=== PATIENT | female | born 1965 | race Caucasian/White ===

== ENCOUNTER → 2022-01-18 15:47 | Outpatient (BNVA) | payer BC, SELFPAY | PROVIDERS: Family Provider Family Medicine; Visit Provider Internal Medicine | DX: E03.9 Hypothyroidism, unspecified (principal) | CPT/HCPCS: 84439; 84443 ==

== ENCOUNTER → 2022-03-25 10:00 | Outpatient (BNVA) | payer BC, SELFPAY | PROVIDERS: Family Provider Family Medicine; PCP Nurse Practitioner Family; Visit Provider Internal Medicine | DX: E03.9 Hypothyroidism, unspecified (principal) | CPT/HCPCS: 36415; 84439; 84443 ==

== ENCOUNTER → 2022-08-19 11:03 | Outpatient (BNVA) | payer BC, SELFPAY | PROVIDERS: Family Provider Family Medicine; Visit Provider Internal Medicine | DX: E03.9 Hypothyroidism, unspecified (principal); I10 Essential (primary) hypertension | CPT/HCPCS: 36415; 84439; 84443 ==

== ENCOUNTER → 2023-03-25 09:40 | Outpatient (BNVA) | payer BC, SELFPAY | PROVIDERS: Family Provider Family Medicine; Visit Provider Internal Medicine | DX: E03.9 Hypothyroidism, unspecified (principal); I10 Essential (primary) hypertension | CPT/HCPCS: 36415; 84439; 84443 ==

== ENCOUNTER 2023-04-01 08:28 | Outpatient (CLI) | payer BC, SELFPAY ==
[2023-04-01 09:33] LABS: Free T4 Free Thyroxine 1.32 ng/dL (0.82-1.77); Thyroid Stimulating Hormone 7.59 uIU/mL (0.27-4.20)
== END 2023-04-01 08:29 | disposition home or self-care (01) ==
PROVIDERS: Visit Provider Internal Medicine
DX: E03.9 Hypothyroidism, unspecified (principal); I10 Essential (primary) hypertension
CPT/HCPCS: 36415; 84439; 84443

== ENCOUNTER 2023-04-16 22:34 | Emergency (ER) | payer BC, SELFPAY ==
[2023-04-16 22:51] VITALS: BP 135/71; PULSE 92; RESP 16; TEMP 37.4; O2SAT 92; BMI 31.1
[2023-04-16 23:09] LABS: Add Urine Microscopic? NO; Charge for UA Resulting for Rev
[2023-04-16 23:24] LABS: Blood Urine Neg (Negative); Glucose Urine UA Norm (Normal); Protein Urine Neg (Negative); Specific Gravity, Urine 1.005 (1.005-1.030); Urine Appearance Clear (CLEAR); Urine Color Yellow (Yellow); pH Urine 7 (5-7)
[2023-04-16 23:25] LABS: Bilirubin Urine Neg (Negative); Ketones Urine 1+ (Negative); Leukocyte Esterase Urine Negative (Negative); Nitrate Urine Negative (Negative); Urobilinogen Urine Norm (Negative)
[2023-04-16 23:34] VITALS: BP 137/81; PULSE 88; RESP 16; TEMP 36.8; O2SAT 93
--- NOTE | 2023-04-16 23:58 | XRR_ITS ---
PROCEDURE INFORMATION: Exam: XR Chest Exam date and time: 04/17/2023 12:09 AM Clinical indication: Abdominal pain; Localized; Left lower quadrant (llq); Prior surgery; Surgery date: 6+ months; Surgery type: Appy. Partial hysto. Patient HX: Cough with llq pain; Additional info: Llq pain, concern for constipation TECHNIQUE: Imaging protocol: Radiologic exam of the chest. Views: 1 view. COMPARISON: No relevant prior studies available. FINDINGS: Lungs: Unremarkable. No consolidation. Pleural spaces: Unremarkable. No pleural effusion. No pneumothorax. Heart/Mediastinum: Unremarkable. No cardiomegaly. Bones/joints: Unremarkable. PROCEDURE INFORMATION: Exam: XR Abdomen Exam date and time: 04/17/2023 12:09 AM Age: 58 years old Clinical indication: Abdominal pain; Localized; Left lower quadrant (llq); Prior surgery; Surgery date: 6+ months; Surgery type: Appy. Partial hysto. Patient HX: Cough with llq pain; Additional info: Llq pain, concern for constipation TECHNIQUE: Imaging protocol: Radiologic exam of the abdomen. Views: 2 Views. Upright and supine views. COMPARISON: No relevant prior studies available. FINDINGS: Gastrointestinal tract: Normal. No bowel dilation. Intraperitoneal space: Normal. No free air. Bones/joints: No fracture. Severely narrowed right hip joint space with degenerative changes. XR/XR acute abdomen series [id number] IMPRESSION: No acute findings. IMPRESSION: No acute findings.
[2023-04-17] MEDS: dexamethasone 10 mg/mL INJ IVP (00:13)
[2023-04-17] MEDS: benzonatate 100 mg Capsule PO (00:14)
[2023-04-17] MEDS: guaiFENesin 600 mg Tablet PO (00:14)
[2023-04-17 00:17] VITALS: BP 129/76; PULSE 88; RESP 16; O2SAT 91
[2023-04-17 00:21] LABS: Basophils % 0.2 %; Eosinophils # 0.1 10^3/uL (0.0-0.8); Eosinophils % 0.6 %; Hematocrit 28.6 % (37.0-47.0); Lymphocytes # 1.9 10^3/uL (0.8-4.8); Lymphocytes % 17.3 %; Mean Corpuscular Hemoglobin 20.3 pg (28.0-34.0); Mean Corpuscular Volume 72.4 fl (81-99); Mean Platelet Volume 10.4 fL (7.4-10.4); Monocytes # 0.7 10^3/uL (0.2-0.9); Monocytes % 6.1 %; Neutrophils # 8.24 10^3/uL (1.8-7.7); Neutrophils % 75.3 %; Nucleated Red Blood Cells % 0 %; Platelet Count 364 10^3/cmm (130-400); Red Blood Count 3.95 10^6/uL (4.1-5.3); Red Cell Distribution Width 19.6 % (12.1-15.1)
[2023-04-17 00:33] LABS: Alanine Aminotransferase 10 U/L (0-33); Albumin Level 4.1 g/dL (3.5-5.2); Alkaline Phosphatase 92 U/L (35-105); Anion Gap 16.9 (5-19); Aspartate Amino Transferase 9 U/L (0-32); Blood Urea Nitrogen 10 mg/dL (6-20); Carbon Dioxide 23 mmol/L (22-29); Chloride 103 mmol/L (98-107); Globulin 3.1 g/dL (1.3-4.6); Glomerular Filtration Rate 102.3 mL/min (90-130); Glucose 121 mg/dL (65-115); Osmolality Calculated 288 mOsm/kg (285-295); Potassium 3.9 mmol/L (3.5-5.1); Sodium 139 mmol/L (136-145); Total Bilirubin 0.3 mg/dL (0.15-1.2); Total Protein 7.2 g/dL (6.6-8.7)
[2023-04-17 00:34] VITALS: PULSE 84; RESP 18; O2SAT 97
[2023-04-17] MEDS: ipratropium-albuterol 3 mL Neb INHALATION (00:34)
[2023-04-17 00:37] VITALS: PULSE 80; RESP 18; O2SAT 97
--- NOTE | 2023-04-17 01:12 | CTR_ITS ---
PROCEDURE INFORMATION: Exam: CTA Chest With Contrast CTA Abdomen and Pelvis With Contrast Exam date and time: 04/17/2023 1:59 AM Age: 58 years old Clinical indication: Other: N/a; Abdominal pain; Localized; Left lower quadrant (llq); Cough and shortness of breath; Left-sided; Prior surgery; Surgery date: 6+ months; Surgery type: Appy. Partial hysto; Patient HX: Left sided chest pain with cough and SOB. Llq pain. ; Additional info: Abd pain, SOB, hypoxic TECHNIQUE: Imaging protocol: Computed tomographic angiography of the chest with contrast. Exam focused on the arteries. Computed tomographic angiography of the abdomen and pelvis with contrast. Exam focused on the arteries. 3D rendering (Not supervised by radiologist): MIP and/or 3D reconstructed images were created by the technologist. Radiation optimization: All CT scans at this facility use at least one of these dose optimization techniques: automated exposure control; mA and/or kV adjustment per patient size (includes targeted exams where dose is matched to clinical indication); or iterative reconstruction. Contrast material: OMNI 350; Contrast volume: 100 ml; Contrast route: INTRAVENOUS (IV); REPORTING DATA: Count of CT and Cardiac NM exams in prior 12 months: This patient has received 0 known CTs and 0 known cardiac nuclear medicine studies in the 12 months prior to the current study. COMPARISON: CR (ABDOMEN, ) 04/17/2023 12:09 AM RADIATION DOSE METRICS: Total DLP (mGy-cm): 1023.2 FINDINGS: VASCULATURE: Pulmonary arteries: Normal. No pulmonary emboli. Aorta: No aortic aneurysm. No aortic dissection. Celiac trunk and mesenteric arteries: No occlusion or significant stenosis. Renal arteries: No occlusion or significant stenosis. Right iliac arteries: No occlusion or significant stenosis. Left iliac arteries: No occlusion or significant stenosis. CHEST: Lungs: Mild bronchial wall thickening. Mild mosaic attenuation changes of the lung parenchyma. Small peripheral occlusive endobronchial opacities in both lower lobes segmental and subsegmental level bronchi. Negative for bronchiectasis. Negative for peripheral honeycombing. Pleural spaces: Unremarkable. No pneumothorax. No pleural effusion. Heart: Unremarkable. No cardiomegaly. No pericardial effusion. ABDOMEN AND PELVIS: Liver: No mass. Gallbladder and bile ducts: Unremarkable. No calcified stones. No ductal dilation. Pancreas: Unremarkable. No mass. No ductal dilation. Spleen: Unremarkable. No splenomegaly. Adrenal glands: Unremarkable. No mass. Kidneys and ureters: Unremarkable. No solid mass. No hydronephrosis. Stomach and bowel: Segmental inflammatory bowel wall thickening of the descending colon. Prominent diverticulosis. Pericolonic fat stranding. Epicenter of inflammation seen axial series 5, image 48. Negative for bowel obstruction. Negative for pneumatosis intestinalis. No focal mass. Appendix: No evidence of appendicitis. Intraperitoneal space: Unremarkable. No free air. No significant fluid collection. Urinary bladder: Unremarkable. No mass. Reproductive: Hysterectomy. Lymph nodes: Unremarkable. No enlarged lymph nodes. Bones/joints: Unremarkable. No acute fracture. Soft tissues: Unremarkable. CT/CT [facility]dpel [id number] IMPRESSION: 1. Acute diverticulitis in the descending colon. 2. Inflammatory airways disease in the lungs.
--- NOTE | 2023-04-17 01:31 | ED_ITS ---
HPI - Abdominal Pain General: Chief Complaint: Abdominal Pain Stated Complaint: abd pain Time Seen by Provider: 04/16/23 23:19 History of Present Illness: Annel Diaz is a 58-year-old female that presents to the emergency department with complaints of abdominal pain, nausea, upper respiratory symptoms complaints. Onset of symptoms about 4 weeks ago. They seem to improve and then worsen again. She reports green nasal discharge intermittently but currently she is unable to clear nasal passages. She reports intermittent nausea but no vomiting. 2 weeks ago she had pretty i ntense diarrhea but this is resolved. Last bowel movement today and was normal. She denies any blood in her stool. Patient reports she is a 1 pack-a-day smoker for 50 years. Associated Symptoms: Reports chills, GI cramping, diarrhea and nausea; Denies bloating, constipation, dysuria, fever(s), hematochezia, hematuria and vomiting Review of Systems General: Reports: 10 or more systems reviewed and unremarkable except in HPI and below Const: Reports: chills, change in appetite and fatigue; Denies: fever(s), change in weight or malaise Eyes: Denies: change in vision, eye discomfort, eye discharge or eye redness ENMT: Reports: throat pain, hoarseness, nasal discharge and nasal congestion; Denies: enlarged tonsils, odynophagia, ear or mastoid pain, ear discharge, change in hearing, tinnitus, post nasal drip or sinus pain Card: Denies: chest pain, palpitations, irregular heart rhythm, edema, dyspnea on exertion, orthopnea or leg pain with exertion Resp: Denies: dyspnea, productive cough, non-productive cough, wheezing, stri la or chest congestion GI: Reports: abdominal pain, nausea, diarrhea and GI cramping; Denies: vomiting, dysphagia, constipation, bloating or hematochezia : Denies: flank pain, difficulty voiding, dysuria, urinary frequency, urinary urgency, urinary hesitancy, oliguria or hematuria Musc: Denies: neck pain, back pain, extremity pain, joint pain, joint swelling, joint redness, joint warmth or muscle weakness Skin/Breast: Denies: rash, pruritus, erythema, photosensitivity or new lesions Neuro: Denies: headache(s), numbness in extremities, weakness in extremities, sensory changes, lack of coordination, difficulty walking, frequent falls, dizzi ness, confusion, Slurred speech present, difficulty communicating thoughts, seizure-like activity or involuntary movements Endo: Denies: polyuria, polydipsia or tired all the time Joe/Lymph: Denies: easy bruising or easy bleeding PFSH ED PFSH: Medical History Hypothyroid Surgical History H/O dilation and curettage History of appendectomy History of partial hysterectomy [place] teeth removed Family History Father Cancer Heart disease due to changes in tissue or the organ itself Mother Cancer Social History Smoking and tobacco status: current every day smoker Quit status (tobacco): not considering quitting Second hand smoke exposure: Yes Smoking risk assessment/counseling performed?: Yes Alcohol intake: never Desire information about alcohol rehabilitation?: No Counseling given: No Substance/Drug Use: never Desire information about substance/drug rehabilitation?: No Counseling given: No Adopted: No Caregiver/support person: No Lives independently: Yes Household members: none Housing: House Marital status: Single Number of children: 4 Number of grandchildren: 17 Highest education level completed: GED or Equivalent service: No Current occupational status: employed Physical Exam Const: COMMON NORMALS: no acute distress, patient oriented x3 and alert GE NERAL APPEARANCE: cooperative ORIENTATION/CONSCIOUSNESS: Yes awake, Yes oriented to person, Yes oriented to place and Yes oriented to time HENMT: COMMON NORMALS: normocephalic, atraumatic and TM's normal bilaterally HEAD & SCALP: normocephalic and atraumatic FACE & SINUS: normal facial exam and sinuses nontender TYMPANIC MEMBRANE: TM's normal bilaterally MOUTH: Normal oral and palatal mucosa present THROAT: uvula midline and posterior oropharynx abnormal cobblestoning Eye: COMMON NORMALS: Equal, round and reactive pupils present, EOMs intact bilaterally, conjunctivae normal and no scleral icterus GENERAL EYE: appearance normal, both eyes and all related structures ALIGNMENT: Yes alignment normal PERIORBITAL: periorbital findings normal CONJUNCTIVA: Yes conjunctivae normal PUPIL: Yes Equal, round and reactive pupils present Neck/C-Spine: COMMON NORMALS: full ROM GENERAL: Yes normal visual i nspection Lymph: LYMPHATIC: no lymphadenopathy noted Chest: COMMONS NORMALS: normal inspection of the chest Breast/axilla inspection: Yes no chest deformity, asymmetry, normal contours, no nodules, masses, tenderness Resp: COMMON NORMALS: normal respiratory effort, No retractions and No use of accessory muscles EFFORT & INSPECTION: Yes able to speak in complete sentences and Yes symmetric chest movement AUSCULTATION: wheezes expiratory wheezes, left upper and right upper and diminished lung sounds bilateral in the lower lung rosado Cardio: COMMON NORMALS: regular rate, regular rhythm and Peripheral pulses 2+ throughout RATE: regular rate RHYTHM: regular rhythm PERIPHERAL PULSES: Peripheral pulses 2+ throughout GI: COMMON NORMALS: Normal to inspection, nondistended, normoactive bowel sounds present, Soft to palpation, non-tender and No hepatosplenomegaly present INSPECTION: Yes normal to inspection AUSCULTATION: Yes normoactive bowel sounds PALPATION: Yes Soft to palpation and Yes No hepatosplenomegaly present RECTAL EXAM: deferred Extremity: COMMON NORMALS: normal to inspection GENERAL: Yes normal exam except as noted Neuro: COMMON NORMALS: patient oriented x3 SENSORIUM/ORIENTATION: Yes alert, Yes oriented to person, Yes oriented to place and Yes oriented to time CRANIAL NERVES: Yes CN normal except as noted Psych: COMMON NORMALS: mental status grossly normal, Normal thought process present, cooperative, activity/motor behavior normal, denies homicidal ideation and denies suicidal ideation THOUGHT PROCESS: Normal thought process present Skin: COMMON NORMALS: no rashes or lesions noted, no wounds and turgor normal GENERAL SKIN EXAM: no rashes or lesions noted and turgor normal Course Vital Signs: Vital signs: Vital Signs Temperature 98.2 F 04/16/23 23:34 Pulse Rate 80 04/17/23 00:37 Respiratory Rate 18 04/17/23 00:37 Blood Pressure 129/76 04/17/23 00:17 Pulse Oximetry 97 04/17/23 00:37 Oxygen Delivery Me thod Room Air 04/17/23 00:37 MDM - Abdominal Pain Medical Decision Making Patient was evaluated in the emergency department due to complaints of abdominal pain and upper respiratory illness symptoms. Prior to her visit she did not trial any [id number] remedies In the emergency department I considered a multitude of diagnostics that include URI, pharyngitis, bronchitis, pneumonia. With regards to her abdominal pain constipation along with peritonitis, diverticulitis were amongst my differe ntials. While in the emergency department I obtained laboratory studies, chest x-ray and provided medication management. I treated her with Decadron, DuoNeb, and Tessalon Perles. Patient reports that her symptoms have greatly improved. I did obtain a CBC and a CMP which reveals a pretty significant anemia. Hemoglobin is 8.0. With her electrolytes there is no significant disturbance. Patient and I discussed her low hemoglobin and she does not believe that she has had any blood in her stool. Throughout her visit she continues to drop her oxygen saturation with intermittently dipping down into the low to mid 80s. I ambulated her and watched her pulse ox. Lowest oxygen level was 89. I discussed the case with Dr. Min. I have elected to perform a CTA chest with runoff in the abdomen and pelvis. This will be done to rule out any pulmonary embolism, occult chest findings, and to further evaluate her abdomen. Diagnosis with inflammatory lung disease and diverticulitis. Given Flagyl and ciprofloxacin. Patient and I had a long discussion about treatment as well as other recommendations. Patient desats to mid 80s on room air. I am recommending home O2 for the time being. With 2 L nasal cannula she maintain saturations above 89%. I have advised patient to put smoking use oxygen provided, take the medications as provided and follow-up with her primary care. I have also advised her to stay home from work this week as [place] and will not have access to healthcare. Lab Data 04/17/23 00:00 04/17/23 00:00 Labs/Radiology: Radiology Impressions Chest/Abdomen X-ray 04/16/23 23:58 IMPRESSION: No acute findings. IMPRESSION: No acute findings. Chest/Abdomen/Pelvis CTA 04/17/23 01:12 IMPRESSION: 1. Acute diverticulitis in the descending colon. 2. Inflammatory airways disease in the lungs. Laboratory Results WBC 11.0 10^3/uL (4.0-10.0) H 04/17/23 00:00 RBC 3.95 10^6/uL (4.1-5.3) L 04/17/23 00:00 Hgb 8.0 g/dL (11.5-15.3) L 04/17/23 00:00 Hct 28.6 % (37.0-47.0) L 04/17/23 00:00 MCV 72.4 fl (81-99) L 04/17/23 00:00 MCH 20.3 pg (28.0-34.0) L 04/17/23 00:00 MCHC 28.0 g/dL (30.0-36.0) L 04/17/23 00:00 RDW 19.6 % (12.1-15.1) H 04/17/23 00:00 Plt Count 364 10^3/cmm (130-400) 04/17/23 00:00 MPV 10.4 fL (7.4-10.4) 04/17/23 00:00 Neut % (Auto) 75.3 % 04/17/23 00:00 Lymph % (Auto) 17.3 % 04/17/23 00:00 [place] % (Auto) 6.1 % 04/17/23 00:00 Eos % (Auto) 0.6 % 04/17/23 00:00 Baso % (Auto) 0.2 % 04/17/23 00:00 Neut # (Auto) 8.24 10^3/uL (1.8-7.7) H 04/17/23 00:00 Lymph # (Auto) 1.9 10^3/uL (0.8-4.8) 04/17/23 00:00 [place] # (Auto) 0.7 10^3/uL (0.2-0.9) 04/17/23 00:00 Eos # (Auto) 0.1 10^3/uL (0.0-0.8) 04/17/23 00:00 Baso # (Auto) 0.0 10^3/uL (0.0-0.1) 04/17/23 00:00 Nucleated RBC % (auto) 0 % 04/17/23 00:00 Nucleated RBCs # 0.0 /100WBC 04/17/23 00:00 Sodium 139 mmol/L (136-145) 04/17/23 00:00 Potassium 3.9 mmol/L (3.5-5.1) 04/17/23 00:00 Chloride 103 mmol/L (98-107) 04/17/23 00:00 Carbon Dioxide 23 mmol/L (22-29) 04/17/23 00:00 Anion Gap 16.9 (5-19) 04/17/23 00:00 BUN 10 mg/dL (6-20) 04/17/23 00:00 Creatinine 0.6 mg/dL (0.5-0.9) 04/17/23 00:00 GFR Calculation 102.3 mL/min (90-130) 04/17/23 00:00 Glucose 121 mg/dL (65-115) H 04/17/23 00:00 Calculated Osmolality 288 mOsm/kg (285-295) 04/17/23 00:00 Calcium 9.0 mg/dL (8.5-10.5) 04/17/23 00:00 Total Bilirubin 0.3 mg/dL (0.15-1.2) 04/17/23 00:00 AST 9 U/L (0-32) 04/17/23 00:00 ALT 10 U/L (0-33) 04/17/23 00:00 Alkaline Phosphatase 92 U/L (35-105) 04/17/23 00:00 Total Protein 7.2 g/dL (6.6-8.7) 04/17/23 00:00 Albumin 4.1 g/dL (3.5-5.2) 04/17/23 00:00 Globulin 3.1 g/dL (1.3-4.6) 04/17/23 00:00 Urine Color Yellow (Yellow) 04/16/23 23:06 Urine Appearance Clear (CLEAR) 04/16/23 23:06 Urine pH 7 (5-7) 04/16/23 23:06 Ur Specific [place] 1.005 (1.005-1.030) 04/16/23 23:06 Urine Protein Neg (Negative) 04/16/23 23:06 Urine Glucose (UA) Norm (Normal) 04/16/23 23:06 Urine Ketones 1+ (Negative) H 04/16/23 23:06 Urine Blood Neg (Negative) 04/16/23 23:06 Urine Nitrate Negative (Negative) 04/16/23 23:06 Urine Bilirubin Neg (Negative) 04/16/23 23:06 Urine Urobilinogen Norm mg/dL (Negative) 04/16/23 23:06 Ur Leukocyte Esterase Negative (Negative) 04/16/23 23:06 Discharge Plan Discharge Patient Disposition: Home Clinical Impression: Diverticulitis, Inflammation of lung, Acute respiratory distress, Anemia Condition: Stable Prescriptions: New prednisone 50 mg tablet 50 mg PO DAILY 5 Days Qty: 5 0RF Flonase Allergy Relief 50 mcg/actuation spray,suspension 1 spray intranasal DAILY PRN (Reason: allergy symptoms) Qty: 16 0RF Rx Instructions: administer into each nostril ciprofloxacin HCl 500 mg tablet 500 mg PO BID 7 Days Qty: 14 0RF metronidazole 500 mg tablet 500 mg PO BID 7 Days Qty: 14 0RF albuterol sulfate 90 mcg/actuation HFA aerosol inhaler 2 inh inhalation Q6H PRN (Reason: shortness of breath or wheezing) Qty: 6.7 0RF benzonatate 100 mg capsule 100 mg PO TID PRN (Reason: cough) Qty: 30 0RF No Action levothyroxine [Synthroid] 137 mcg tablet 137 mcg PO DAILY Qty: 90 3RF Rx Instructions: Take one tablet by mouth 30 minutes before food or other medications. Discharge Orders: Discharge ED (Routine); Ordered 04/17/23 Ordered By: Sukhjinder Noel Other Ambulatory Orders: DME: Oxygen (Order) Location: None Selected Ordered By: Julius Min Referrals: Jenny Sharp APRN [Primary Care Provider] - Discharge Diet: Advance as tolerated Discharge Activity: Resume usual activity Patient Instructions: Diverticulitis, How to Stop Smoking (ED), Diverticulitis Diet (ED), Anemia (ED), Chronic Lung Disease and Infection Prevention (ED), Opioid Safety, Pain Management Activity Restrictions/Additional Instructions: Need to quit smoking You need to call your primary care doctor on Tuesday to arrange follow-up Take your antibiotics as prescribed Use your home oxygen as instructed You need to return to the emergency department if you develop increased shortness of breath or abdominal pain Please read the above patient instructional packets Coding Level of Care Code ED Trust Administrative Assistant for Alex Montano
[2023-04-17 02:00] VITALS: BP 129/76; PULSE 90; O2SAT 89
[2023-04-17] MEDS: iohexol 350 mg/mL 500 mL Btl (per mL) IV (02:00)
[2023-04-17] MEDS: metroNIDAZOLE 500 MG Tablet PO (03:05)
[2023-04-17] MEDS: ciprofloxacin 500 mg Tablet PO (03:05)
== END 2023-04-17 05:00 | disposition home or self-care (01) ==
PROVIDERS: Emergency Medicine; Emergency Provider Nurse Practitioner; PCP Nurse Practitioner Family
DX: K57.92 Diverticulitis of intestine, part unspecified, without perforation or abscess without bleeding (principal); J18.9 Pneumonia, unspecified organism; R06.03 Acute respiratory distress; D64.9 Anemia, unspecified; F17.210 Nicotine dependence, cigarettes, uncomplicated
CPT/HCPCS: 71275; 74022; 74174; 80053; 81003; 85025; 94640; 96374; 99285; J1100; Q9967

== ENCOUNTER 2023-07-12 10:55 | Outpatient (CLI) | payer BC, SELFPAY ==
[2023-07-12 11:55] LABS: Thyroid Stimulating Hormone 0.16 uIU/mL (0.27-4.20)
== END 2023-07-12 10:56 | disposition home or self-care (01) ==
PROVIDERS: PCP Nurse Practitioner Family; Visit Provider Internal Medicine
DX: E03.9 Hypothyroidism, unspecified (principal)
CPT/HCPCS: 84439; 84443

== ENCOUNTER 2023-07-21 08:50 | Outpatient (CLI) | payer BC, SELFPAY ==
[2023-07-21 09:34] LABS: Thyroid Stimulating Hormone 0.34 uIU/mL (0.27-4.20)
== END 2023-07-21 08:51 | disposition home or self-care (01) ==
PROVIDERS: PCP Nurse Practitioner Family; Visit Provider Internal Medicine
DX: E03.9 Hypothyroidism, unspecified (principal)
CPT/HCPCS: 36415; 84443

== ENCOUNTER 2023-09-21 10:48 | Outpatient (CLI) | payer BC, SELFPAY ==
[2023-09-21 11:48] LABS: Thyroid Stimulating Hormone 0.86 uIU/mL (0.27-4.20)
[2023-09-21 12:40] LABS: Free T4 Free Thyroxine 1.29 ng/dL (0.82-1.77)
== END 2023-09-21 10:49 | disposition home or self-care (01) ==
LOC: LAB 10:49
PROVIDERS: PCP Nurse Practitioner Family; Visit Provider Internal Medicine
DX: E03.9 Hypothyroidism, unspecified (principal)
CPT/HCPCS: 36415; 84439; 84443

== ENCOUNTER 2024-04-09 12:42 | Outpatient (CLI) | payer MEDICAID, SELFPAY ==
[2024-04-09 14:28] LABS: Free T4 Free Thyroxine 1.74 ng/dL (0.82-1.77)
== END 2024-04-09 12:43 | disposition home or self-care (01) ==
LOC: LAB 12:46
PROVIDERS: PCP Nurse Practitioner Family; Visit Provider Internal Medicine
DX: E03.9 Hypothyroidism, unspecified (principal)
CPT/HCPCS: 36415; 84439; 84443

== ENCOUNTER → 2024-04-16 07:23 | Outpatient (BNVA) | payer MEDICAID, SELFPAY | PROVIDERS: PCP Nurse Practitioner Family; Visit Provider Internal Medicine | DX: E03.9 Hypothyroidism, unspecified (principal); M25.551 Pain in right hip; E66.3 Overweight; Z79.890 Hormone replacement therapy; Z68.29 Body mass index [BMI] 29.0-29.9, adult | CPT/HCPCS: 99214 ==